=== PATIENT | male | born 1980 | race Two or more races ===

== ENCOUNTER 2017-06-06 05:50 | Emergency (ER) | payer SELFPAY ==
[~2017-06-06] VITALS: Ht 167.6 cm; Wt 74.8 kg
[2017-06-06] MEDS ORDERED: NKM (05:53)
--- NOTE | 2017-06-06 06:11 | Emergency Room Report ---
History of Present Illness General Chief Complaint: Substance Abuse Source: Patient, EMS Present Illness HPI This is a 37-year-old male brought in by EMS for substance abuse. His family called 911 because he broke the window at home. Patient said he was using meth thought that someone was locking him and at home. Said he broke the window. Denies suicidal thought homicidal thought. Denies any other complaint. No injury. Allergies: Coded Allergies: VANCOMYCIN (Verified Allergy, Unknown, 06/06/17) Patient History Past Medical History: see triage record, old chart reviewed Past Surgical History: none Pertinent Family History: none Social History: Reports: drug use Immunizations: other Reviewed Nursing Documentation: PMH: Agreed, PSxH: Agreed Nursing Documentation-PMH Past Medical History: No Stated History Review of Systems Eye: Denies: eye pain, blurred vision ENT: Denies: ear pain, nose congestion, throat swelling Respiratory: Denies: cough, shortness of breath Cardiovascular: Denies: chest pain, palpitations Gastrointestinal: Denies: abdominal pain, diarrhea, nausea, vomiting Musculoskeletal: Denies: back pain, joint pain Skin: Denies: rash Neurological: Denies: headache, numbness Endocrine: Denies: increased thirst, increased urine Hematologic/Lymphatic: Denies: easy bruising All Other Systems: negative except mentioned in HPI Physical Exam Vital Signs Date Time Temp Pulse Resp B/P (MAP) Pulse Ox O2 Delivery O2 Flow Rate FiO2 06/06/17 05:53 97.3 110 20 127/99 99 Room Air vitals unremarkable Sp02 EP Interpretation: reviewed, normal General Appearance: well appearing, no apparent distress, alert Head: normocephalic, atraumatic Eyes: bilateral eye PERRL, bilateral eye EOMI ENT: hearing grossly normal, normal pharynx Neck: full range of motion, supple, no meningismus Respiratory: chest non-tender, lungs clear, normal breath sounds Cardiovascular #1: regular rate, rhythm, no murmur Gastrointestinal: normal bowel sounds, non tender, no mass, no organomegaly, no bruit, non-distended Musculoskeletal: back normal, gait/station normal, normal range of motion Psychiatric: mood/affect normal Skin: warm/dry Medical Decision Making Diagnostic Impression: Primary Impression: Methamphetamine abuse ER Course Patient presents with aggressive behavior with questionable psychotic episode after using methamphetamine. He is back to baseline now. He is calm. Vital signs unremarkable. We'll discharge home. No criteria for 5150. Last Vital Signs Date Time Temp Pulse Resp B/P (MAP) Pulse Ox O2 Delivery O2 Flow Rate FiO2 06/06/17 05:53 97.3 110 20 127/99 99 Room Air Status: improved Disposition: HOME, SELF-CARE Condition: Stable Additional Instructions: stop using drugs. Followup with rehabilitation. Return if worse. FARZANEH MCFARLAND M.D. Jun 06, 2017 06:11
[2017-06-06 06:38] VITALS: BP 127/99
== END 2017-06-06 06:40 | disposition home or self-care (01) ==
LOC: EDBD 05:50 → EMR 06:10
DX: F15.10 Other stimulant abuse, uncomplicated (principal)
CPT/HCPCS: 99283